=== PATIENT | male | born 1990 | race Two or more races ===

== ENCOUNTER 2022-08-15 21:04 | Emergency (ER) | payer BC ==
[~2022-08-15] VITALS: Ht 175.3 cm; Wt 90.7 kg
[2022-08-15 22:02] VITALS: BP_SYST 145
[2022-08-15 23:42] VITALS: BP_SYST 145
== END 2022-08-15 23:42 | disposition home or self-care (01) ==
LOC: SED 21:04
DX: S61.210A Laceration without foreign body of right index finger without damage to nail, initial encounter (principal); Z79.899 Other long term (current) drug therapy; W26.8XXA Contact with other sharp object(s), not elsewhere classified, initial encounter; Y93.89 Activity, other specified; Y92.89 Other specified places as the place of occurrence of the external cause; Y99.8 Other external cause status
CPT/HCPCS: 73140-TC; 99283